=== PATIENT | female | born 1995 | race Caucasian/White ===

== ENCOUNTER 2018-07-15 12:53 | Outpatient (CLI) | payer OTHER ==
[~2018-07-15] VITALS: Ht 170.2 cm; Wt 100.0 kg
[2018-07-15 13:32] VITALS: BP 120/59
[2018-07-15 13:47] LABS: MEAN CORPUSCULAR HEMOGLOBIN 30.7 pg (27.0-34.8); MEAN CORPUSCULAR VOLUME 90.4 fL (80-100); MEAN PLATELET VOLUME 11.3 fL (7.4-10.4); PLATELET COUNT 139 x10^3/uL (130-400); RED BLOOD COUNT 3.63 x10^6/uL (3.82-5.3); RED CELL DISTRIBUTION WIDTH 12.7 % (9.6-15.2)
[2018-07-15 13:48] LABS: BASOPHILS # (AUTO) 0.01 x10^3/uL (0-0.1); BASOPHILS % (AUTO) 0 % (0-1); EOSINOPHILS # (AUTO) 0.06 x10^3/uL (0-0.4); EOSINOPHILS % (AUTO) 1 % (1-7); LYMPHOCYTES # (AUTO) 1.05 x10^3/uL (1-3.4); LYMPHOCYTES % (AUTO) 15 % (22-44); MD SCAN; MONOCYTES # (AUTO) 0.59 x10^3/uL (0.2-0.8); MONOCYTES % (AUTO) 8 % (2-9); NEUTROPHILS # (AUTO) 5.41 x10^3/uL (1.8-6.8); NEUTROPHILS % (AUTO) 76 % (42-75)
[2018-07-15] MEDS ORDERED: PREN1TAB60 PO (13:49)
== END 2018-07-15 16:37 | disposition home or self-care (01) ==
LOC: LDOP 12:53
PROVIDERS: ATTEND Obstetrics & Gynecology Gynecology
DX: O71.89 Other specified obstetric trauma (principal); Z3A.34 34 weeks gestation of pregnancy
CPT/HCPCS: 36415; 59025; 76815; 85025; 85384; 85460; 99201; G0463

== ENCOUNTER 2018-09-09 18:23 | Emergency (ER) | payer OTHER ==
[~2018-09-09] VITALS: Ht 170.2 cm; Wt 96.0 kg
[~2018-09-09 18:23] MED LIST: IBUP-1222 PO; PREN1TAB60 PO
[2018-09-09 18:44] VITALS: BP 112/74
--- NOTE | 2018-09-09 18:58 | NUR ---
RING REMOVED; RING BAGGED AND RETURNED TO PT. ICE PACK PROVIDED.
--- NOTE | 2018-09-09 18:58 | NUR ---
MANAGER UROLOGY BS CUTTING OFF GOLD WEDDING BAND. PT'S SPOUSE AT BS.
== END 2018-09-09 19:10 | disposition home or self-care (01) ==
LOC: ED 19:07
DX: S60.455A Superficial foreign body of left ring finger, initial encounter (principal); X58.XXXA Exposure to other specified factors, initial encounter; Y93.89 Activity, other specified; Y92.89 Other specified places as the place of occurrence of the external cause; Y99.8 Other external cause status
CPT/HCPCS: 20520; 99284